=== PATIENT | female | born 1935 | race Caucasian/White ===

== ENCOUNTER → 2020-12-02 | Outpatient (CLI) | payer OTHER, BC ==
[~2020-12-02] VITALS: Ht 160 cm; Wt 63.5 kg
[~2020-12-02] MED LIST: CARTIA XT120 M1 PO; ELIQUIS5 MG PO; FLECAINIDE ACET50 M2 PO; SYNTHROID137 MC1 PO
[2020-12-02 09:13] VITALS: BP 152/88
--- NOTE | 2020-12-02 09:27 | NUR ---
Pain Clinic Assessment: 1. History of Osteoarthritis: SPINE History of Rheumatoid Arthritis: 2. Height: 5 ft. 3 in. 160.0 cm. Weight: 140.0 lb. oz. 63.504 kg. Patient's BMI: 24.8 3. Vital Signs: BP: 152/88 Pulse: 77 Resp: 14 Temp: 02 Sat: 97 ECG Mon: 4. Pain Intensity: 8 5. Fall Risk: Dizziness: N Needs help standing or walking: N Fallen in the last 3 months: N Fall risk comments: 6. Patient on Blood Thinner: [place] 7. History of Hypertension: N 8. Opioid Therapy greater than 6 weeks: N Opiate Contract Signed: 9. Risk Assessment Tool Provided: 0-LOW RISK 10. Functional Assessment Tool: 11. Recreational Drug Use: Never Drug Type: Tobacco Use: Never Smoker Tobacco Type: Amount or Packs/day: How Many Years: Alcohol Use: Yes Frequency: Monthly Quant:
== END ==
LOC: PAIN 11-29 07:08
PROVIDERS: ATTEND Anesthesiology Pain Medicine
DX: M70.61 Trochanteric bursitis, right hip (principal); M54.16 Radiculopathy, lumbar region; M48.061 Spinal stenosis, lumbar region without neurogenic claudication; R51.9 Headache, unspecified; Z88.8 Allergy status to other drugs, medicaments and biological substances; Z79.899 Other long term (current) drug therapy

== ENCOUNTER → 2020-12-16 | Outpatient (CLI) | payer OTHER, BC ==
[~2020-12-16] VITALS: Ht 160 cm; Wt 63.5 kg
[~2020-12-16] MED LIST changes: +BIOTIN5 MG PO; +FOLIXAPURE5000 UNIT PO; +MAGNESIUM250 M1 PO; +POTASSIUM20 PO; +TURMERIC 500 M1 EACH PO; +VITAMIN B COMP1 EACH PO
[2020-12-16 13:28] VITALS: BP 128/75
--- NOTE | 2020-12-16 13:34 | NUR ---
Pain Clinic Assessment: 1. History of Osteoarthritis: SPINE History of Rheumatoid Arthritis: 2. Height: 5 ft. 3 in. 160.0 cm. Weight: 140.0 lb. oz. 63.504 kg. Patient's BMI: 24.8 3. Vital Signs: BP: 128/75 Pulse: 84 Resp: 16 Temp: 02 Sat: 99 ECG Mon: 4. Pain Intensity: 5 5. Fall Risk: Dizziness: N Needs help standing or walking: N Fallen in the last 3 months: N Fall risk comments: 6. Patient on Blood Thinner: [place] 7. History of Hypertension: N 8. Opioid Therapy greater than 6 weeks: N Opiate Contract Signed: 9. Risk Assessment Tool Provided: 0-LOW RISK 10. Functional Assessment Tool: 11. Recreational Drug Use: Never Drug Type: Tobacco Use: Never Smoker Tobacco Type: Amount or Packs/day: How Many Years: Alcohol Use: Yes Frequency: Special Occasions Quant: 1
== END | disposition home or self-care (01) ==
LOC: PAIN 06:57
PROVIDERS: ATTEND Anesthesiology Pain Medicine
DX: M70.61 Trochanteric bursitis, right hip (principal); G89.29 Other chronic pain; Z98.890 Other specified postprocedural states; Z79.899 Other long term (current) drug therapy; Z79.01 Long term (current) use of anticoagulants; Z88.0 Allergy status to penicillin; Z88.2 Allergy status to sulfonamides; Z88.8 Allergy status to other drugs, medicaments and biological substances

== ENCOUNTER → 2021-06-02 | Outpatient (CLI) | payer OTHER, BC ==
[~2021-06-02] VITALS: Ht 160 cm; Wt 65.7 kg
[2021-06-02 10:32] VITALS: BP 119/66
--- NOTE | 2021-06-02 11:07 | NUR ---
Pain Clinic Assessment: 1. History of Osteoarthritis: SPINE History of Rheumatoid Arthritis: Not Applicable 2. Height: 5 ft. 3 in. 160.0 cm. Weight: 144.8 lb. oz. 65.681 kg. Patient's BMI: 25.7 3. Vital Signs: BP: 119/66 Pulse: 59 Resp: 14 Temp: 02 Sat: 97 ECG Mon: 4. Pain Intensity: 9 W/ACTIVITY 5. Fall Risk: Dizziness: N Needs help standing or walking: N Fallen in the last 3 months: N Fall risk comments: 6. Patient on Blood Thinner: [place] 7. History of Hypertension: N 8. Opioid Therapy greater than 6 weeks: N Opiate Contract Signed: 9. Risk Assessment Tool Provided: 0-LOW RISK 10. Functional Assessment Tool: 11. Recreational Drug Use: Never Drug Type: Tobacco Use: Never Smoker Tobacco Type: Amount or Packs/day: How Many Years: Alcohol Use: Yes Frequency: Quant:
== END | disposition home or self-care (01) ==
LOC: PAIN 05-02 07:54
PROVIDERS: ATTEND Anesthesiology Pain Medicine
DX: M70.61 Trochanteric bursitis, right hip (principal); G89.29 Other chronic pain; Z98.890 Other specified postprocedural states; Z79.899 Other long term (current) drug therapy; Z79.01 Long term (current) use of anticoagulants; Z88.0 Allergy status to penicillin; Z88.2 Allergy status to sulfonamides; Z88.8 Allergy status to other drugs, medicaments and biological substances